=== PATIENT | male | born 1980 | race Caucasian/White ===

== ENCOUNTER 2021-09-11 11:38 | Outpatient (CLI) | payer OTHER, SELFPAY ==
[~2021-09-11] VITALS: Ht 170.2 cm; Wt 65.8 kg
== END 2021-09-11 14:00 | disposition home or self-care (01) ==
LOC: SLB 11:38 → EDSTATUS 09-14 07:30
PROVIDERS: ATTEND Otolaryngology
DX: Z01.812 Encounter for preprocedural laboratory examination (principal); Z20.822 Contact with and (suspected) exposure to COVID-19; D38.5 Neoplasm of uncertain behavior of other respiratory organs; J34.2 Deviated nasal septum; J34.3 Hypertrophy of nasal turbinates; R49.22 Hyponasality
CPT/HCPCS: U0003

== ENCOUNTER 2021-10-08 10:42 | Outpatient (CLI) | payer OTHER, SELFPAY ==
[~2021-10-08] VITALS: Ht 170.2 cm; Wt 65.8 kg
== END 2021-10-08 15:00 | disposition home or self-care (01) ==
LOC: SLB 10:42 → EDSTATUS 10-12 08:04
PROVIDERS: ATTEND Otolaryngology
DX: Z01.812 Encounter for preprocedural laboratory examination (principal); Z20.822 Contact with and (suspected) exposure to COVID-19; D38.5 Neoplasm of uncertain behavior of other respiratory organs; J34.2 Deviated nasal septum; J34.3 Hypertrophy of nasal turbinates; R49.22 Hyponasality
CPT/HCPCS: C9803; U0003